=== PATIENT | male | born 1985 | race Two or more races ===

== ENCOUNTER 2016-12-08 07:16 | Inpatient (IN) | payer MEDICAID ==
[~2016-12-08] VITALS: Ht 182.9 cm; Wt 77.1 kg
--- NOTE | 2016-12-08 07:30 | NUR ---
MS TELEVISION DIRECTOR NOTE PATIENT IS ALERT AND ORIENTED x4. NO PAIN AT THIS TIME. NO SOB OR DISTRESS NOTED. CALL LIGHT WITHIN REACH. SAFETY MEASURES IMPLEMENTED. ABLE TO COMMUNICATE NEEDS. CURRENTLY NPO PER MD. NO NEW ORDERS YET, MD TO GIVE ORDERS. ALL BELONGINGS ACCOUNTED FOR. CAME INTO ER FOR HICCUPS FOR MORE THAN x10. PATIENT STATED THAT HAS NOT BEEN ABLE TO GET SLEEP THE PAST 5-6 NIGHTS. IV ON LEFT AC 20 G. NO ALLERGIES. WILL CONTINUE TO MONITOR
[2016-12-08] MEDS ORDERED: CHLO25TA23 PO (07:40)
[2016-12-08] MEDS ORDERED: FAMO40TA7 PO (07:40)
[2016-12-08 08:00] VITALS: BP 130/71
[2016-12-08] MEDS ORDERED: ONDANSETRON HCL/PF 4 MG/2 ML VIAL IVP PRN (10:00)
[2016-12-08] MEDS: IV D5/0.45 NACL 1,000 ML IV PRN (12:27)
[2016-12-08 16:00] VITALS: BP 116/77
[2016-12-08] MEDS: BACLOFEN (10 MG) 10 MG TABLET PO SCH (18:27)
--- NOTE | 2016-12-08 18:55 | NUR ---
MS RN CLOSING NOTE PATIENT IS ALERT AND ORIENTED x4. NO PAIN AT THIS TIME. NO SOB OR DISTRESS NOTED. PATIENT STATED HE FELT NAUSEOUS, MEDICATION GIVEN. CALL LIGHT WITHIN REACH AT ALL TIMES. SAFETY MEASURES IMPLEMENTED. IV INTACT AND PATENT NO REDNESS OR SWELLING NOTED. CLEAR LIQUID DIET, TOLERATING WELL. ALL DUE MEDICATION GIVEN ORDERED. IV FLUIDS RUNNING AT 75 ML/HR. ABLE TO COMMUNICATE NEEDS. WILL ENDORSE TO CLINICAL FELLOW NURSE
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
[2016-12-08 20:20] VITALS: BP 139/73
[2016-12-08] MEDS: METOCLOPRAMIDE HCL 10 MG/2 ML VIAL IV PRN (20:29)
[2016-12-08] MEDS: MORPHINE SULFATE INJ 4 MG/ML DISP.SYRIN IV PRN (20:29)
[2016-12-08] MEDS ORDERED: FAMOTIDINE (20 MG) 20 MG TABLET PO ONE (20:30)
[2016-12-09] MEDS: IV D5/0.45 NACL 1,000 ML IV PRN (05:52)
[2016-12-09] MEDS: MORPHINE SULFATE INJ 4 MG/ML DISP.SYRIN IV PRN (05:59)
[2016-12-09] MEDS: METOCLOPRAMIDE HCL 10 MG/2 ML VIAL IV PRN ×3 (05:59→18:34)
--- NOTE | 2016-12-09 06:18 | NUR ---
MS RN NOTES AWAKE & RESPONSIVE. NOT IN ANY DISTRESS. NO SOB NOTED. DENIES ANY PAIN OR DISCOMFORT AT THIS TIME. WITH IVF INFUSING WELL. MONITORED ACCORDINGLY. CALL LIGHT WITHIN REACH. BED IN LOWEST POSITION. SR UP X2 FOR SAFETY. WILL ENDORSE TO NEXT SHIFT.
[2016-12-09 06:46] LABS: BASOPHILS % (AUTO) 0.4 % (0.0-2.0); EOSINOPHILS # (AUTO) 0.1 /CMM (0.0-0.7); EOSINOPHILS % (AUTO) 1.2 % (0.0-6.0); HEMATOCRIT 45 % (39-51); HEMOGLOBIN 15.6 g/dL (13.5-17.5); LYMPHOCYTES # (AUTO) 2.3 /CMM (0.8-4.8); LYMPHOCYTES % (AUTO) 32.6 % (20.0-44.0); MEAN CORPUSCULAR HEMOGLOBIN 29 PG (26.0-33.0); MEAN CORPUSCULAR HGB CONC 35 g/dl (31.0-36.0); MEAN CORPUSCULAR VOLUME 84 fL (80-96); MONOCYTES # (AUTO) 0.7 /CMM (0.1-1.30); MONOCYTES % (AUTO) 9.8 % (2.0-12.0); NEUTROPHILS # (AUTO) 3.9 /CMM (1.8-8.9); PLATELET COUNT (AUTO) 228 /CMM (150-450); RDW COEFFICIENT OF VARIATION 12.5 (11.5-15.0); RED BLOOD CELL COUNT(AUTO) 5.34 MIL/uL (4.5-6.0)
[2016-12-09 06:53] LABS: CALCIUM, SERUM 8.2 mg/dL (8.5-10.1); CREATININE 0.8 mg/dL (0.6-1.3); MAGNESIUM 2.4 mg/dL (1.8-2.4); POTASSIUM 4.3 mmol/L (3.5-5.1)
--- NOTE | 2016-12-09 07:48 | NUR ---
MS RN OPENING NOTE PATIENT IS ALERT AND ORIENTED x4. NO PAIN AT THIS TIME. NO SOB OR DISTRESS NOTED. CALL LIGHT WITHIN REACH. SAFETY MEASURES IMPLEMENTED. IV INTACT AND PATENT NO REDNESS OR SWELLING NOTED. IV FLUIDS RUNNING AT THIS TIME AT 75 ML/HR. ABLE TO COMMUNICATE NEEDS. PATIENT HAS INTRACTABLE HICCUPS, AWAITING CONSULTATION PER MD. WILL CONTINUE TO MONITOR
[2016-12-09 08:00] VITALS: BP 143/89
[2016-12-09] MEDS: BACLOFEN (10 MG) 10 MG TABLET PO SCH ×3 (08:18→16:53)
[2016-12-09] MEDS ORDERED: PANTOPRAZOLE 40 MG VIAL IV SCH (09:00)
[2016-12-09 16:00] VITALS: BP 145/85
[2016-12-09] MEDS ORDERED: MAG HYDROX/AL HYDROX/SIMETH 30 ML UDC PO PRN (16:30)
[2016-12-09] MEDS ORDERED: chlorproMAZINE HCL 25 MG TABLET PO PRN (17:30)
--- NOTE | 2016-12-09 18:56 | NUR ---
MS STAIN WIPER NOTE PATIENT IS ALERT AND ORIENTED x4. NO PAIN AT THIS TIME. NO SOB OR DISTRESS NOTED. CALL LIGHT WITHIN REACH AT ALL TIMES. SAFETY MEASURES IMPLEMENTED. ALL BELONGINGS ACCOUNTED FOR AND WITH PATIENT. IV REMOVED, SKIN INTACT. NO WOUNDS PRESENT. GAVE PATIENT AND FAMILY BEDSIDE TEACHING, ABLE TO RETURN TEACHING BACK. PATIENT'S HOME MEDICATION GIVEN BACK TO PATIENT. LEFT VIA PRIVATE CAR WITH BROTHER IN LAW.
[2016-12-09] MEDS ORDERED: FAMOTIDINE (20 MG) 20 MG TABLET PO SCH (21:00)
== END 2016-12-09 18:47 | disposition home or self-care (01) | DRG 243 ==
LOC: MED 07:16
PROVIDERS: ADMIT Nurse Practitioner Acute Care; ATTEND Nurse Practitioner Acute Care
DX: K21.9 Gastro-esophageal reflux disease without esophagitis (principal); F41.9 Anxiety disorder, unspecified; R06.6 Hiccough
CPT/HCPCS: 36415; 80048-TC; 83735-TC; 84100-TC; 85025-TC; 87081-TC; C9113; J2270; J2405; J2765; J3230; J3490; Z7610